=== PATIENT | male | born 1985 | race Caucasian/White ===

== ENCOUNTER 2022-08-01 17:35 | Emergency (ER) | payer BC ==
[2022-08-01] MEDS ORDERED: Acetaminophen/oxyCODONE 325-5 MG Tab PO ONE (19:50)
[2022-08-01] MEDS ORDERED: Clindamycin HCl 150 MG Cap PO STA (19:50)
== END 2022-08-01 20:05 | disposition home or self-care (01) ==
LOC: MW.ED 17:35
DX: K61.1 Rectal abscess (principal); I10 Essential (primary) hypertension; Z88.1 Allergy status to other antibiotic agents; Z79.899 Other long term (current) drug therapy
CPT/HCPCS: 46040; 99283; A9270; 10060